=== PATIENT | male | born 1975 | race Hispanic/Latino ===

== ENCOUNTER 2020-09-09 20:38 | Emergency (ER) | payer OTHER ==
[~2020-09-09] VITALS: Ht 175.3 cm; Wt 86.2 kg
[~2020-09-09 20:38] MED LIST: TYL3 PO
[2020-09-09 20:40] VITALS: BP 122/90
== END 2020-09-09 22:25 | disposition left against medical advice (07) ==
LOC: EDH 20:38
DX: R51.9 Headache, unspecified (principal); Z53.21 Procedure and treatment not carried out due to patient leaving prior to being seen by health care provider

== ENCOUNTER 2020-09-12 10:19 | Emergency (ER) | payer OTHER ==
[~2020-09-12] VITALS: Ht 175.3 cm; Wt 86.2 kg
[2020-09-12 10:23] VITALS: BP 126/86
[2020-09-12] MEDS ORDERED: NAPR-1180 PO (12:30)
[2020-09-12] MEDS ORDERED: ACETAMINOPHEN 500 MG TABLET PO SCH (12:30)
[2020-09-12 13:27] VITALS: BP 132/74
== END 2020-09-12 13:28 | disposition home or self-care (01) ==
LOC: EDH 10:19
DX: S09.90XA Unspecified injury of head, initial encounter (principal); Z79.1 Long term (current) use of non-steroidal anti-inflammatories (NSAID); W22.09XA Striking against other stationary object, initial encounter; Y93.89 Activity, other specified; Y92.89 Other specified places as the place of occurrence of the external cause; Y99.8 Other external cause status
CPT/HCPCS: 99282